=== PATIENT | female | born 1975 | race Hispanic/Latino ===

== ENCOUNTER 2017-08-30 13:00 | Emergency (ER) | payer OTHER ==
[2017-08-30 14:23] LABS: #Eosinphils 0.2 thou/uL (0.0-0.7); #Lymphocytes 2.8 thou/uL (1.20-3.40); #Monocytes 0.7 thou/uL (0.11-0.59); #Neutrophils 3.5 thou/uL (1.40-6.50); %Basophils 0.7 % (0.0-1.0); %Eosinophils 2.8 % (0.0-10.0); %Monocytes 9.1 % (0.0-10.0); Hematocrit 40.3 % (36.0-47.0); Mean Platelet Volume 7.6 fL (7.4-10.4); Red Blood Cell (RBC) Count 4.52 mill/uL (4.20-5.40); White Blood Cell (WBC) Count 7.2 thou/uL (4.8-10.8)
[2017-08-30 14:45] LABS: ALT (SGPT) 69 U/L (8-55); AST (SGOT) 64 U/L (5-34); Alkaline Phosphatase 62 U/L (40-150); Anion Gap 10 mmol/L (10-20); BUN (Urea Nitrogen) 11 mg/dL (7.0-18.7); Bilirubin, Total 0.5 mg/dL (0.2-1.2); Calc. Creatinine Clearance 0 mL/min (70-130); Calcium 9.2 mg/dL (7.8-10.44); Carbon Dioxide 22 mmol/L (22-29); Chloride 107 mmol/L (98-107); Estimated GFR-MDRD Greater than 90; Globulin 4.5 g/dL (2.4-3.5)
== END 2017-08-30 16:22 ==
LOC: ERS 13:00
DX: A04.72 Enterocolitis due to Clostridium difficile, not specified as recurrent (principal); I10 Essential (primary) hypertension; I25.2 Old myocardial infarction; F41.9 Anxiety disorder, unspecified; F32.9 Major depressive disorder, single episode, unspecified; Z87.891 Personal history of nicotine dependence
CPT/HCPCS: 36415; 80053; 85025; 99284

== ENCOUNTER 2017-10-24 08:16 | Outpatient (CLI) | payer OTHER ==
--- NOTE | 2017-10-24 09:38 | ULT ---
GALLBLADDER ULTRASOUND: CLINICAL HISTORY: Hepatitis C. FINDINGS: The patient is status post cholecystectomy. The common duct measures approximately 1 cm, which may b e related to reservoir effect given the prior cholecystectomy. There is a coarsened echotexture of t he hepatic parenchyma which demonstrates a mild degree of generalized increased echogenicity. No per ihepatic ascites. IMPRESSION: 1. Status post cholecystectomy. 2. Coarsened, increased echogenicity of the hepatic parenchyma. This may be on the basis of hepatic steatosis or hepatocellular disease. Recommend clinical correlation as well as correlation with chon er function enzymes. POS: [facility]
[2017-10-24] MEDS ORDERED: Gadobenate Dimeglumine 529 MG/1 ML (20ML VIAL) ONE (13:19)
--- NOTE | 2017-10-24 16:38 | MRI ---
LUMBAR SPINE MRI WITH AND WITHOUT CONTRAST 10/24/17 INDICATION: Low back pain with radicular symptoms of the left lower extremity. No prior imaging comparison. FINDINGS: The conus medullaris terminates at the L1-2 level. There is multilevel mild to moderate bilateral fac et osteoarthritis. L5-S1: There is a broad based disc osteophyte complex, asymmetric to the left. There is mild central canal stenosis and mild bilateral neural foraminal stenosis. L4-5: There is disc osteophyte complex with grade I spondylolisthesis and superimposed central zone d isc protrusion with moderate to severe central canal compromise. There is moderate right foraminal st enosis. No high grade left foraminal stenosis. L3-4: Moderate to severe central canal stenosis is present one the basis of prominent sized disc prot rusion centered within the central zone spanning laterally to each subarticular zone with prominent c rowding of the nerve roots of the thecal sac and within each subarticular zone. There is mild bilater al neural foraminal stenosis. L2-3: No significant compromise of the central canal or neural foramina. L1-2: No significant compromise of the central canal or neural foramina. Incidental note of left paracentral disc protrusion at T11-12 with mild ventral cord effacement. Ther e is also an incompletely assessed disc protrusion of T10-11 level effacing ventral thecal sac. Evaluation of postcontrast imaging reveals no pathologic, mass producing intra-axial enhancement. There is a prominent congenital narrowing of the vertebral canal on the basis of shortened pedicles a t the mid to lower aspect of the lumbar spine. IMPRESSION: Multilevel disc degenerative disease with areas of disc protrusion superimposed upon congenitally beau rowed vertebral canal, most pronounced at L3-4 due to a large disc protrusion. Incidental note of dis c protrusions at the low thoracic spine, as well. This does result in ventral cord effacement. POS: [facility]
== END 2017-10-24 08:17 | disposition home or self-care (01) ==
LOC: ULT 08:16
PROVIDERS: ATTEND Family Medicine
DX: B19.20 Unspecified viral hepatitis C without hepatic coma (principal); M54.5 Low back pain; K76.89 Other specified diseases of liver; Z90.49 Acquired absence of other specified parts of digestive tract
CPT/HCPCS: 72158; 76705; A9579

== ENCOUNTER 2018-02-14 18:48 | Emergency (ER) | payer OTHER ==
--- NOTE | 2018-02-14 19:46 | RAD ---
SINGLE VIEW OF THE CHEST 02/14/18 COMPARISON: None. HISTORY: Chest pain. FINDINGS: Single view of the chest shows a normal sized cardiomediastinal silhouette. There is no evidence of c onsolidation, mass, or pleural effusion. The bones are unremarkable. IMPRESSION: No evidence of acute cardiopulmonary disease. POS: [facility]
[2018-02-14 19:47] LABS: #Basophils 0.1 thou/uL (0.0-0.2); #Eosinphils 0.4 thou/uL (0.0-0.7); #Lymphocytes 3.2 thou/uL (1.20-3.40); #Monocytes 0.9 thou/uL (0.11-0.59); #Neutrophils 6.1 thou/uL (1.40-6.50); %Basophils 0.6 % (0.0-1.0); %Eosinophils 3.4 % (0.0-10.0); %Lymphocytes 29.7 % (21.0-51.0); %Monocytes 8.3 % (0.0-10.0); Hemoglobin 11.4 g/dL (12.0-16.0); Mean Corpuscular HGB CONC 33.8 g/dL (32.0-36.0); Mean Corpuscular Volume 79.7 fl (81.0-99.0); Mean Platelet Volume 7.8 fL (7.4-10.4); Platelet Count 248 thou/uL (130-400); RBC Distribution Width 14.6 % (11.5-14.5); Red Blood Cell (RBC) Count 4.24 mill/uL (4.20-5.40); White Blood Cell (WBC) Count 10.6 thou/uL (4.8-10.8)
[2018-02-14 20:13] LABS: ALT (SGPT) 54 U/L (8-55); AST (SGOT) 45 U/L (5-34); Albumin 3.9 g/dL (3.5-5.0); Alkaline Phosphatase 72 U/L (40-150); Anion Gap 13 mmol/L (10-20); BUN (Urea Nitrogen) 19 mg/dL (7.0-18.7); Bilirubin, Total 0.3 mg/dL (0.2-1.2); CK (CPK) 150 U/L (29-168); Calc. Creatinine Clearance 0 mL/min (70-130); Calcium 9.5 mg/dL (7.8-10.44); Carbon Dioxide 18 mmol/L (22-29); Chloride 107 mmol/L (98-107); Estimated GFR-MDRD 79; Globulin 5.1 g/dL (2.4-3.5); Glucose 110 mg/dL (70-105); Potassium 4.1 mmol/L (3.5-5.1); Sodium 134 mmol/L (136-145)
[2018-02-14 20:16] LABS: CKMB 2.2 ng/mL (0-6.6); Troponin I Less than 0.010 ng/mL (< 0.028)
[2018-02-14 21:14] LABS: Bacteria/HPF None Seen HPF (None Seen)
[2018-02-14 21:15] LABS: BHCG - Serum Negative (NEGATIVE); Pregs Control Background? CLEAR/WHITE (CLR/WHITE); Pregs Control Bar Appear? YES (CONTROL BAR)
[2018-02-14 21:17] LABS: Bilirubin Negative (Negative); Blood, Urine Large (Negative); Glucose, Urine (Dipstick) Negative (Negative); Leukocyte Small (Negative); Nitrite Negative (Negative); Protein, Urine (Dipstick) 100 mg/dL (Neg-Trace); Urobilinogen 0.2 mg/dL (0.2-1.0)
[2018-02-14 21:18] LABS: Clarity Cloudy (Clear)
[2018-02-14 21:19] LABS: Pathc Cast-AUWi Flag 3.48 (0-2.49)
[2018-02-14 21:21] LABS: RBC/HPF GREATER THAN 50-TNTC HPF (0-3)
[2018-02-14 21:22] LABS: Hyaline Casts/LPF 0-3 HYALINE CAST LPF (0-3 Hyaline); Squamous Epithelial 0-3 HPF (0-3)
== END 2018-02-14 21:40 | disposition home or self-care (01) ==
LOC: ERS 18:48
DX: F43.9 Reaction to severe stress, unspecified (principal); N92.0 Excessive and frequent menstruation with regular cycle; E78.5 Hyperlipidemia, unspecified; I25.2 Old myocardial infarction; I10 Essential (primary) hypertension; F41.9 Anxiety disorder, unspecified; F32.9 Major depressive disorder, single episode, unspecified; Z79.82 Long term (current) use of aspirin; Z79.899 Other long term (current) drug therapy
CPT/HCPCS: 71045; 80053; 81003; 81015; 82553; 83880; 84484; 84703; 85025; 93005